=== PATIENT | female | born 1960 | race Caucasian/White ===

== ENCOUNTER → 2020-05-09 09:31 | Outpatient (BNVA) | payer BC, SELFPAY | PROVIDERS: Family Provider Family Medicine; PCP Family Medicine; Visit Provider Internal Medicine | DX: M35.00 Sjogren syndrome, unspecified (principal) | CPT/HCPCS: 36415; 80053; 81003; 85025; 85651; 86140; 86160; 99213 ==

== ENCOUNTER → 2020-07-15 10:22 | Outpatient (BNVA) | payer BC, SELFPAY | PROVIDERS: Family Provider Family Medicine; PCP Family Medicine; Visit Provider Internal Medicine | DX: M35.00 Sjogren syndrome, unspecified (principal); Z79.899 Other long term (current) drug therapy; R30.0 Dysuria | CPT/HCPCS: 81001; 99213 ==

== ENCOUNTER → 2020-12-22 10:11 | Outpatient (BNVA) | payer BC, SELFPAY | PROVIDERS: Family Provider Family Medicine; PCP Family Medicine; Visit Provider Internal Medicine | DX: M35.00 Sjogren syndrome, unspecified (principal); Z79.899 Other long term (current) drug therapy | CPT/HCPCS: 99213; 99214 ==

== ENCOUNTER → 2021-04-15 09:09 | Outpatient (BNVA) | payer BC, SELFPAY | PROVIDERS: Family Provider Family Medicine; PCP Family Medicine; Visit Provider Family Medicine | DX: Z20.822 Contact with and (suspected) exposure to COVID-19 (principal); M35.00 Sjogren syndrome, unspecified | CPT/HCPCS: 87635 ==

== ENCOUNTER 2021-07-07 10:30 | Outpatient (CLI) | payer BC, SELFPAY ==
[2021-07-07 10:52] LABS: Basophils % 0.9 %; Eosinophils # 0.2 10^3/uL (0.0-0.8); Eosinophils % 4.7 %; Hematocrit 33.4 % (37.0-47.0); Hemoglobin 10.7 g/dL (11.5-15.3); Lymphocytes % 23.1 %; Mean Corpuscular Hemoglobin 29.6 pg (28.0-34.0); Mean Corpuscular Volume 92.3 fl (81-99); Mean Platelet Volume 10.8 fL (7.4-10.4); Monocytes # 0.4 10^3/uL (0.2-0.9); Monocytes % 10.3 %; Neutrophils # 2.61 10^3/uL (1.8-7.7); Neutrophils % 60.8 %; Nucleated Red Blood Cells % 0 %; Platelet Count 192 10^3/cmm (130-400); Red Blood Count 3.62 10^6/uL (4.1-5.3); Red Cell Distribution Width 12.2 % (12.1-15.1); White Blood Count 4.3 10^3/uL (4.0-10.0)
[2021-07-07 11:26] LABS: Alanine Aminotransferase 12 U/L (0-33); Alkaline Phosphatase 74 IU/L (35-105); Anion Gap 14.3 (5-19); Aspartate Amino Transferase 13 U/L (0-32); Blood Urea Nitrogen 21 mg/dL (8-23); C Reactive Protein 1.9 mg/L (0.0-4.9); Calcium 9.2 mg/dL (8.5-10.5); Carbon Dioxide 23 mmol/L (22-29); Chloride 106 mmol/L (98-107); Globulin 3.5 g/dL (1.3-4.6); Glomerular Filtration Rate 50.2 mL/min (90-130); Glucose 86 mg/dL (65-115); Osmolality Calculated 290 mOsm/kg (285-295); Potassium 4.3 mmol/L (3.5-5.1); Sodium 139 mmol/L (136-145); Total Bilirubin 0.3 mg/dL (0.15-1.2); Total Protein 7.5 g/dL (6.6-8.7)
[2021-07-08 14:22] LABS: Erythrocyte Sedimentation Rate 29 mm/hr (0-15)
[2021-07-08 16:44] LABS: 25 Hydroxy Vitamin D 31 ng/mL (30-100); Ferritin 161 ng/mL (15-150); Iron 62 ug/dL (37-145); Magnesium 1.8 mg/dL (1.7-2.3); Phosphorus 3.4 mg/dL (2.5-4.5); Thyroid Stimulating Hormone 1.84 uIU/mL (0.27-4.20); Vitamin B12 461 pg/mL (232-1245)
[2021-07-08 18:07] LABS: Cortisol Random 14.48 ug/dL (2.47-19.5); Free T4 Free Thyroxine 1.29 ng/dL (0.82-1.77)
[2021-07-09 08:08] LABS: Creatine Phosphokinase 42 U/L (26-192)
== END 2021-07-07 10:31 | disposition home or self-care (01) ==
LOC: LAB 10:35
PROVIDERS: PCP Family Medicine; Visit Provider Internal Medicine
DX: M35.00 Sjogren syndrome, unspecified (principal); R30.0 Dysuria; Z79.899 Other long term (current) drug therapy
CPT/HCPCS: 36415; 80053; 82306; 82533; 82550; 82607; 82728; 83540; 83735; 84100; 84439; 84443; 85025; 85651; 86140

== ENCOUNTER → 2021-07-08 13:54 | Outpatient (BNVA) | payer BC, SELFPAY | PROVIDERS: PCP Family Medicine; Visit Provider Internal Medicine | DX: M35.00 Sjogren syndrome, unspecified (principal); Z79.899 Other long term (current) drug therapy; R53.83 Other fatigue; D64.9 Anemia, unspecified | CPT/HCPCS: 81001; 82306; 82533; 82550; 82607; 82728; 83540; 83735; 84100; 84439; 84443; 87077; 87086; 87186; 99214 ==

== ENCOUNTER → 2021-09-21 10:29 | Outpatient (BNVA) | payer BC, SELFPAY | PROVIDERS: PCP Family Medicine; Visit Provider Registered Nurse Neonatal Intensive Care | DX: N39.0 Urinary tract infection, site not specified (principal) | CPT/HCPCS: 81000; 87077; 87086; 87184 ==

== ENCOUNTER → 2022-10-11 10:35 | Outpatient (BNVA) | payer BC, SELFPAY | PROVIDERS: PCP Family Medicine; Visit Provider Internal Medicine | DX: M35.00 Sjogren syndrome, unspecified (principal); D64.9 Anemia, unspecified; R53.83 Other fatigue; M54.9 Dorsalgia, unspecified | CPT/HCPCS: 36415; 80053; 81001; 82306; 82607; 82728; 82746; 83540; 84439; 84443; 85025; 85651; 86140; 87086 ==